=== PATIENT | male | born 1990 | race Caucasian/White ===

== ENCOUNTER 2017-03-09 14:05 | Emergency (ER) | payer OTHER ==
[2017-03-09 15:02] VITALS: BP 146/79
[2017-03-09] MEDS ORDERED: Ibuprofen TAB* 600 MG PO ONE (15:12)
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
--- NOTE | 2017-03-09 15:54 | RAD ---
INDICATION: Right knee injury. TECHNIQUE: 4 views of the right knee were obtained. FINDINGS: The bones are in normal alignment. No joint effusion is present. There is mild deformity of the inferior patella possibly related to remote trauma. No acute fracture is seen. Joint spaces appear maintained. IMPRESSION: NO EVIDENCE FOR ACUTE FRACTURE.
== END 2017-03-09 16:10 | disposition home or self-care (01) ==
LOC: UCEAST 14:05
DX: S83.411A Sprain of medial collateral ligament of right knee, initial encounter (principal); J45.909 Unspecified asthma, uncomplicated; F12.90 Cannabis use, unspecified, uncomplicated; F17.210 Nicotine dependence, cigarettes, uncomplicated; Z88.0 Allergy status to penicillin; V49.9XXA Car occupant (driver) (passenger) injured in unspecified traffic accident, initial encounter
CPT/HCPCS: 99212; A9270-GY; G0463

== ENCOUNTER 2018-04-01 14:11 | Emergency (ER) | payer SELFPAY ==
[2018-04-01 14:25] VITALS: BP 133/87
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
--- NOTE | 2018-04-01 15:59 | RAD ---
HISTORY: Right upper quadrant pain COMPARISONS: None TECHNIQUE: Multiple transverse and longitudinal ultrasound images were obtained of the right upper quadrant of the abdomen using grayscale, color Doppler, and spectral Doppler imaging. FINDINGS: LIVER: There is mild increased echogenicity of the portal triads.. There are no focal parenchymal masses. There is normal hepatopedal flow of the portal vein on Doppler imaging. BILIARY TREE: There is no intrahepatic or extrahepatic biliary dilatation. The common duct measures 0.4 cm. GALLBLADDER: The gallbladder is incompletely distended and is not well evaluated. The gallbladder wall appears normal account for the degree of distention. There is no appreciable cholelithiasis or sonographic Sprague sign. PANCREAS: The head of the pancreas is unremarkable. The tail of the pancreas is not well visualized secondary to overlying bowel gas. RIGHT KIDNEY: The right kidney is normal in shape, size, contour, and echogenicity. There is no hydronephrosis or nephrolithiasis. The right kidney measures 10.9 x 4.8 x 5.5 cm. AORTA AND IVC: The aorta and IVC are unremarkable. Normal arterial and venous waveforms are identifiable on spectral Doppler imaging. FLUID: There are no pleural effusions. There is no free fluid within the hepatorenal recess. OTHER FINDINGS: None. IMPRESSION: 1. THE GALLBLADDER IS INCOMPLETELY DISTENDED, BUT IS GROSSLY NORMAL. 2. THERE IS MILD PERIPORTAL EDEMA.
== END 2018-04-01 16:25 | disposition home or self-care (01) ==
LOC: UCEAST 14:11
DX: R10.11 Right upper quadrant pain (principal); R11.0 Nausea; R60.0 Localized edema; J45.909 Unspecified asthma, uncomplicated; Z86.19 Personal history of other infectious and parasitic diseases; Z88.0 Allergy status to penicillin; F17.210 Nicotine dependence, cigarettes, uncomplicated
CPT/HCPCS: 76705; 99211; G0463

== ENCOUNTER 2019-09-22 17:25 | Emergency (ER) | payer MEDICAID ==
[2019-09-22 17:43] VITALS: BP 135/68
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
--- NOTE | 2019-09-23 08:03 | UC ---
- Progress Note Progress Note: RADIOLOGY REPORT REVIEWED. NO EVIDENCE FOR FRACTURE. NO CHANGE IN MGMT. Course/Dx - Diagnoses Provider Diagnoses: Elevated BP without diagnosis of hypertension, MCL sprain of right knee Discharge ED - Sign-Out/Discharge Documenting (check all that apply): Post-Discharge Follow Up All imaging exams completed and their final reports reviewed: Yes - Discharge Plan Condition: Stable Disposition: HOME Prescriptions: Ibuprofen TAB* [Motrin TAB*] 600 mg PO Q6H PRN #40 tab PRN Reason: Pain Patient Education Materials: Knee Sprain (DC), Knee Immobilizer (ED) Referrals: [facility] [Outside] - 1 Week (if not better) [facility] [Outside] (BP recheck in 2-20 weeks) Additional Instructions: ice twice daily - Billing Disposition and Condition Condition: STABLE Disposition: Home
== END 2019-09-22 18:45 | disposition home or self-care (01) ==
LOC: UCEAST 17:25
DX: R03.0 Elevated blood-pressure reading, without diagnosis of hypertension (principal); S83.411A Sprain of medial collateral ligament of right knee, initial encounter; Z88.0 Allergy status to penicillin; Z87.891 Personal history of nicotine dependence; W01.0XXA Fall on same level from slipping, tripping and stumbling without subsequent striking against object, initial encounter; Y92.9 Unspecified place or not applicable
CPT/HCPCS: 99213; G0463

== ENCOUNTER 2019-10-20 08:47 | Emergency (ER) | payer MEDICAID | END 2019-10-20 09:00 | disposition left against medical advice (07) | LOC: UCEAST 08:47 | DX: Z53.21 Procedure and treatment not carried out due to patient leaving prior to being seen by health care provider (principal) ==